=== PATIENT | male | born 2000 | race Caucasian/White ===

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

== ENCOUNTER 2021-01-08 17:45 | Inpatient (IN) ==
[2021-01-08 20:01] LABS: Basophils # (auto) 0.01 K/uL (0-0.2); Basophils % (auto) 0.1 %; Eosinophils # (auto) 0.14 K/uL (0-0.5); Eosinophils % (auto) 1.9 %; Hematocrit (blood only) 43.7 % (42-52); Hemoglobin 15.3 g/dL (14.0-18.0); Immature Granulocytes # (auto) 0.01 K/uL (0.00-0.02); Immature Granulocytes % (auto) 0.1 %; Lymphocytes # (auto) 2.91 K/uL (1.2-3.4); Lymphocytes % (auto) 38.7 %; Mean Corpuscular Hemoglobin 32.8 pg (25-34); Mean Corpuscular Volume 93.6 fL (80-100); Monocytes # (auto) 0.59 K/uL (0.11-0.59); Monocytes % (auto) 7.8 %; Neutrophils # (auto) 3.86 K/uL (1.4-6.5); Neutrophils % (auto) 51.4 %; Platelet Count 274 K/uL (130-400); RDW Coefficient of Variation 11.9 % (11.5-14.5); Red Blood Count 4.67 M/uL (4.7-6.1); White Blood Count 7.52 K/uL (4.8-10.8)
[2021-01-08 20:02] LABS: Appearance Urine Clear (Clear); Bilirubin Urine Negative (Negative); Blood Urine Negative (Negative); Color Urine Yellow; Glucose Urine UA Negative (Negative); Ketones Urine Negative (Negative); Leukocyte Esterase Urine Negative (Negative); Nitrite Urine Negative (Negative); Protein Urine Negative (Negative); Specific Gravity Urine 1.016 (1.000-1.030); Urobilinogen Urine Negative (Negative)
[2021-01-08 20:19] LABS: Albumin Level 4.9 gm/dl (3.4-5.0); BUN Creatinine Ratio 12.2 (10-20); Calcium 9.5 mg/dl (8.5-10.1); Creatinine Clr Calc Pharmacy 133.7 ml/min; Est GFR (African American) 141.1 ml/min; Est GFR (Non-African American) 121.7 ml/min; Potassium 4.2 mmol/L (3.5-5.1)
[2021-01-08 20:46] LABS: Albumin Globulin Ratio 1.3 (0.9-2); Bilirubin,Total 0.4 mg/dl (0.2-1); Globulin 3.7 gm/dl (2.5-4.0); Total Protein 8.6 gm/dl (6.4-8.2)
[2021-01-08] MEDS ORDERED: SODIUM CHLORIDE 0.9% 1000ML 1,000 ML IV ONE (20:59)
--- NOTE | 2021-01-08 21:27 | Emergency Department Note ---
Impression & Plan Rhabdomyolysis, Left arm pain ED Provider Note NAME: ARIS CHAN AGE: 20 SEX: M : 2000 ARRIVES VIA: Walk-In INFORMANT: [Patient] ED PROVIDER(S): [Master pAple MD] CHIEF COMPLAINT: Arm pain/swelling HISTORY OF PRESENT ILLNESS: The patient is a 20-year-old male who presents with 2 days of left arm pain and swelling, the pain is mild in severity. He went to the gym on Wednesday and since then, the arm has felt tight. He is concerned about rhabdomyolysis as he has had this twice in the last year. There is no dark urine. He has had no cough or congestion or shortness of breath. He has no chest pain. He did see a master control engineer about his rhabdomyolysis and nothing was found of concern. Patient states that at the gym on Wednesday, he did 15 minutes of rows and triceps, he did not overdo it. He is not taking any supplements. REVIEW OF SYSTEMS: See HPI for pertinent positives and negatives. A total of ten systems were rev iewed and were otherwise negative. PMHx/PSHx: See Below SOCIAL HISTORY: See Below. PHYSICAL EXAM: GENERAL: Patient is in no acute distress. HEENT: No acute trauma, normocephalic atraumatic, mucous membranes moist, no nasal congestion, no scleral icterus. NECK: No stridor, no adenopathy, no meningismus, trachea is midline. LUNGS: Clear to auscultation bilaterally, no wheeze, no rhonchi, breath sounds equal. HEART: Without murmurs gallops or rubs, regular rate and rhythm. ABDOMEN: Soft, nontender, bowel sounds positive, no hernias, no peritonitis. EXTREMITIES: No cyanosis, full range of motion of all the joints without pain or difficulty, no signs for acute trauma. There is some mild discomfort to palpate the left tricep but I do not see any raul edema. No evidence for left upper extremity neurovascular compromise. NEUROLOGIC: Oriented x 3, no acute motor or sensory deficits, no focal weakness. SKIN: No rash, no jaundice, no diaphoresis. DIFFERENTIAL DIAGNOSIS: Rhabdomyolysis, muscle tear, contusion, strain, renal failure, dehydration, hematoma, among others. EMERGENCY DEPARTMENT COURSE/PROCEDURES: MEDICAL DECISION MAKING: There is no leukocytosis or concerning anemia. There is a normal platelet count. No significant electrolyte abnormality or kidney failure. No concerning liver enzyme elevation. Total CK is quite high at over 11,000. Urinalysis did not show infection or hematuria. Covid testing returned negative. The patient was given IV saline, 1 L. The patient has rhabdomyolysis. He requires IV hydration, a hospital stay and some monitoring. He has had this issue before 2 other times and has been hospitalized both times. I did speak with the patient and case management. The on-call hospitalist was consulted. Past Med/Surg History Medical History Elevated LFTs Rhabdomyolysis Surgical History (Updated 07/20/20 @ 12:16 by Aris Friedman DO) Hx of biopsy muscle: Left Quadriceps Biopsy 07/19/20 Family History (Updated 07/20/20 @ 12:14 by Aris Friedman DO) Denies family history of Neuromuscular disease Social History Smoking Status: Never smoker Hx Alcohol Use: No Hx Substance Use: No Preferred Language: Welsh Communication Ability: Effective Cutter First Required: No Beliefs That Will Affect Care: None Current Living Situation: Other Current Living Situation Comment: Dorm Feels Safe at Home: Yes Assistive Devices: None Allergies Allergies Allergy/AdvReac Type Severity Reaction Status Date / Time cefdinir [From Omnicef] Allergy Unknown Unknown Verified 07/17/20 19:28 Home Meds Home Medications Medication Instructions Recorded Confirmed multivitamin 1 tab PO DAILY 01/29/20 07/17/20 Results & Data (ED) Vital Signs Vital Signs - 24 hr 01/08/21 18:10 01/08/21 20:48 01/08/21 21:02 Temperature 36.8 C Temperature Source Temporal Artery Scan Pulse Rate 66 73 51 L Pulse Rate from SpO2 Sensor 87 51 L Respiratory Rate 18 15 20 Respiratory Effort / Characteristics Non-Labored Respiratory Depth Normal Blood Pressure 123/74 137/55 L 116/68 Blood Pressure Mean 90 82 84 Pulse Oximetry 95 95 100 Oxygen Delivery Method Room Air Sepsis Recent Fever Within 48 Hours No Sepsis New/Unexplained Change in Mental Status No Sepsis Action Taken by Nursing No Action Required 01/08/21 21:30 01/08/21 22:00 01/08/21 22:30 Temperature Temperature Source Pulse Rate 50 L 58 L 57 L Pulse Rate from SpO2 Sensor 50 L 56 L 54 L Respiratory Rate 18 18 18 Respiratory Effort / Characteristics Respiratory Depth Blood Pressure 129/71 119/64 116/68 Blood Pressure Mean 90 82 84 Pulse Oximetry 100 100 99 Oxygen Delivery Method Sepsis Recent Fever Within 48 Hours Sepsis New/Unexplained Change in Mental Status Sepsis Action Taken by Nursing 01/08/21 23:02 01/08/21 23:10 Temperature Temperature Source Pulse Rate 53 L 53 L Pulse Rate from SpO2 Sensor 57 L 53 L Respiratory Rate 20 20 Respiratory Effort / Characteristics Respiratory Depth Blood Pressure Blood Pressure Mean Pulse Oximetry 98 100 Oxygen Delivery Method Sepsis Recent Fever Within 48 Hours Sepsis New/Unexplained Change in Mental Status Sepsis Action Taken by Retirement Medications Current Medication List: was personally reviewed by me Laboratory Data Attestation: I reviewed the patient's lab results. Result diagrams: 01/08/21 19:45 01/08/21 19:45 Lab Results 01/08/21 01/08/21 01/08/21 Range/Units 19:45 19:45 19:45 WBC 7.52 (4.8-10.8) K/uL RBC 4.67 L (4.7-6.1) M/uL Hgb 15.3 (14.0-18.0) g/dL Hct 43.7 (42-52) % MCV 93.6 (80-100) fL MCH 32.8 (25-34) pg MCHC 35.0 (32-36) g/dL RDW Std Deviation 40.0 (36.4-46.3) fL RDW Coeff of Sweta 11.9 (11.5-14.5) % Plt Count 274 (130-400) K/uL MPV 9.0 (7.4-10.4) fL Immature Gran % (Auto) 0.1 % Neut % (Auto) 51.4 % Lymph % (Auto) 38.7 % [place] % (Auto) 7.8 % Eos % (Auto) 1.9 % Baso % (Auto) 0.1 % Neut # (Auto) 3.86 (1.4-6.5) K/uL Lymph # (Auto) 2.91 (1.2-3.4) K/uL [place] # (Auto) 0.59 (0.11-0.59) K/uL Eos # (Auto) 0.14 (0-0.5) K/uL Baso # (Auto) 0.01 (0-0.2) K/uL Immature Gran # (Auto) 0.01 (0.00-0.02) K/uL Sodium 139 (136-145) mmol/L Potassium 4.2 (3.5-5.1) mmol/L Chloride 105 (98-107) mmol/L Carbon Dioxide 28 (21-32) mmol/L Anion Gap 6.0 (3-11) BUN 11 (7-18) mg/dl Creatinine 0.91 (0.6-1.4) mg/dl Est Cr Clr Drug Dosing 133.7 ml/min Est GFR ( Amer) 141.1 ml/min Est GFR (Non-Af Amer) 121.7 ml/min BUN/Creatinine Ratio 12.2 (10-20) Glucose 91 (70-99) mg/dl Calcium 9.5 (8.5-10.1) mg/dl Total Bilirubin 0.4 (0.2-1) mg/dl AST 100 H (15-37) U/L ALT 44 (12-78) U/L Alkaline Phosphatase 59 (45-117) U/L Total Creatine Kinase 64943 H (39-308) U/L Total Protein 8.6 H (6.4-8.2) gm/dl Albumin 4.9 (3.4-5.0) gm/dl Globulin 3.7 (2.5-4.0) gm/dl Albumin/Globulin Ratio 1.3 (0.9-2) Urine Color Yellow Urine Appearance Clear (Clear) Urine pH 6.0 (4.5-7.5) Ur Specific [place] 1.016 (1.000-1.030) Urine Protein Negative (Negative) Urine Glucose (UA) Negative (Negative) Urine Ketones Negative (Negative) Urine Blood Negative (Negative) Urine Nitrite Negative (Negative) Urine Bilirubin Negative (Negative) Urine Urobilinogen Negative (Negative) Ur Leukocyte Esterase Negative (Negative) COVID-19 Eval Order SARS-CoV-2 (PCR) (Negative) 01/08/21 01/08/21 Range/Units 21:35 21:35 WBC (4.8-10.8) K/uL RBC (4.7-6.1) M/uL Hgb (14.0-18.0) g/dL Hct (42-52) % MCV (80-100) fL MCH (25-34) pg MCHC (32-36) g/dL RDW Std Deviation (36.4-46.3) fL RDW Coeff of Sweta (11.5-14.5) % Plt Count (130-400) K/uL MPV (7.4-10.4) fL Immature Gran % (Auto) % Neut % (Auto) % Lymph % (Auto) % [place] % (Auto) % Eos % (Auto) % Baso % (Auto) % Neut # (Auto) (1.4-6.5) K/uL Lymph # (Auto) (1.2-3.4) K/uL [place] # (Auto) (0.11-0.59) K/uL Eos # (Auto) (0-0.5) K/uL Baso # (Auto) (0-0.2) K/uL Immature Gran # (Auto) (0.00-0.02) K/uL Sodium (136-145) mmol/L Potassium (3.5-5.1) mmol/L Chloride (98-107) mmol/L Carbon Dioxide (21-32) mmol/L Anion Gap (3-11) BUN (7-18) mg/dl Creatinine (0.6-1.4) mg/dl Est Cr Clr Drug Dosing ml/min Est GFR ( Amer) ml/min Est GFR (Non-Af Amer) ml/min BUN/Creatinine Ratio (10-20) Glucose (70-99) mg/dl Calcium (8.5-10.1) mg/dl Total Bilirubin (0.2-1) mg/dl AST (15-37) U/L ALT (12-78) U/L Alkaline Phosphatase (45-117) U/L Total Creatine Kinase (39-308) U/L Total Protein (6.4-8.2) gm/dl Albumin (3.4-5.0) gm/dl Globulin (2.5-4.0) gm/dl Albumin/Globulin Ratio (0.9-2) Urine Color Urine Appearance (Clear) Urine pH (4.5-7.5) Ur Specific [place] (1.000-1.030) Urine Protein (Negative) Urine Glucose (UA) (Negative) Urine Ketones (Negative) Urine Blood (Negative) Urine Nitrite (Negative) Urine Bilirubin (Negative) Urine Urobilinogen (Negative) Ur Leukocyte Esterase (Negative) COVID-19 Eval Order Covid19 at [facility] SARS-CoV-2 (PCR) NEGATIVE (Negative) Administered Medications Discontinued Medications Sodium Chloride (Nss 1000ml) 1,000 mls @ 999 mls/hr IV .Q1H1M ONE Stop: 01/08/21 21:59 Last Infusion: 01/08/21 22:01 Dose: 999 mls/hr Documented by: [id number] Admin: 01/08/21 21:00 Dose: 999 mls/hr Documented by: [id number] Sodium Chloride (Nss 1000ml) 1,000 mls @ 999 mls/hr IV .Q1H1M STA Stop: 01/08/21 22:48 Last Admin: 01/08/21 22:15 Dose: 999 mls/hr Documented by: [id number] Discharge Plan Visit Data Chief Complaint: Swelling/Edema to Extremity Stated Complaint: EDEMA, SORENESS, TIGHTNESS ED Provider: Master Apple Discharge Problem: Rhabdomyolysis, Left arm pain Patient Disposition: Admitted As Inpatient Condition: Good Discharge Instructions Interventions: ED Discharge Assessment Last Done: 01/08/21 23:14 Forms Stand Alone Forms: [employer] Prescriptions Prescriptions: No Action multivitamin Tablet 1 tab PO DAILY RF: 0 Referrals Referrals: [facility] [Primary Care Provider] -
[2021-01-08] MEDS ORDERED: SODIUM CHLORIDE 0.9% 1000ML 1,000 ML IV STA (21:48)
--- NOTE | 2021-01-08 22:20 | History & Physical Report ---
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 Continue at 200 ml/hr. - Trend CK, CBC, CMP - urine myoglobin pending Elevated LFTs - chronic, improving. Secondary to repeat rhabdo and hx alcohol use. - trend CMP FENGI: Regular diet; NS at 200 cc/hr DVT Ppx:ambulate in room Dispo: Med/surg Code status: Full code History of Present Illness Chief Complaint: Muscle pain Primary Care Provider: [facility] 20 yo M with hx multiple admissions for rhabdomyolysis in ER for stiff muscle pain 2 days after working out, found to have rhabdo. Patient denies using any work out supplements. He states he worked out on Wednesday for 15 minutes doing rowing and tricep curls, and then did half an hour of cardio on the treadmill and didn't push himself. he states he's been working out for 3 days a week, an hour at a time all summer and has handled it well. Drinks 6 12-16 oz water bottles per day. Drinks ~5 beers on the weekend spread over an extended period of time. Was able to see a 4 h youth development specialist after last admission in july, which revealed negative tests for genetic etiology for rhabdo. Review of muscle biopsy done here in july -- negative for glycogen storage/lysosomal storage diseases, myositis. he denies nay pain at this time, and says his arms mostly just feel tight. He does note that his range of motion has decreased at time of interview compared to when he got to the ER. Allergies Allergy/AdvReac Type Severity Reaction Status Date / Time cefdinir [From Omnicef] Allergy Unknown Unknown Verified 01/09/21 00:27 Home Medications Medication Instructions Recorded Confirmed Type multivitamin 1 tab PO DAILY 01/29/20 01/09/21 History guaifenesin 1,200 mg tablet, 1,200 mg PO DAILY PRN 01/09/21 01/09/21 History extended release 12 hr (Mucinex) Past Med/Surg History Medical History (Updated 01/09/21 @ 00:16 by Marly Cain RN) Elevated LFTs Rhabdomyolysis x3 Surgical History Hx of biopsy muscle: Left Quadriceps Biopsy 07/19/20 Family History (Updated 07/20/20 @ 12:14 by Alf Friedman DO) Denies family history of Neuromuscular disease Social History Smoking Status: Never smoker Second Hand Exposure: No; Do You Dip or Chew Tobacco: No; Tobacco Cessation Education Requested by Patient: No Hx Alcohol Use: Yes Alcohol type: beer, wine and hard liquor Hx Substance Use: Yes Last Used Substance Other:: MORE THAN TWO WEEKS AGO Substance Use Type Other:: OCCASIONAL Preferred Language: Yi Communication Ability: Effective Supervisor Graphite Required: No Beliefs That Will Affect Care: None Current Living Situation: Other Current Living Situation Comment: [facility] Other Information That Helps Us Care for You: No Feels Safe at Home: Yes Safety Concerns: Feels Safe At This Time Assistive Devices: None Review of Systems Constitutional: no fever, no chills, no sweats and no fatigue Eyes: no blind spots and no discharge Ear, Nose, Mouth, Throat: no hearing loss and no nasal congestion Respiratory: no cough and no dyspnea Cardiovascular: no chest pain, no dyspnea on exertion and no edema Gastrointestinal: no abdominal pain, no nausea, no vomiting, no constipation, no diarrhea/loose stools and no blood in stools Genitourinary: no dysuria or no decreased urination Musculoskeletal: + stiffness, + limited range of motion and + myalgia; no joint pain Neurologic: no tingling, no numbness and no headache(s) Endocrine: no fatigue Physical Exam Physical Exam: Constitutional: healthy appearing young male sitting comfortably in bed. Eyes: EOMI, pupils equal and reactive bilaterally, no scleral icterus Cardiac: RRR, no murmurs, gallops or rubs. Normal S1, S2 Pulm: CTA BL, no wheezes, rhonchi, crackles or rubs, moving air well throughout both lungs Abd: soft, nontender, nondistended, normal bowel sounds, no rebound or guarding Extremities: 2+ peripheral pulses, no edema Neuro: no focal deficits, moving all 4 limbs, A&Ox3 MSK: no TTP of muscle groups, extension of arms limited to ~170 degrees, flexion limited -- previously was able to grasp his shoulder with full hand, now difficult to touch finger tips to shoulder Results & Data Results & [facility] ([facility] Vital Signs (Past 12 Hours) Vital Signs Temp Pulse Resp BP Pulse Ox 01/08/21 18:10 36.8 C 66 18 123/74 95 Laboratory Results Laboratory Results WBC 7.52 K/uL (4.8-10.8) 01/08/21 19:45 RBC 4.67 M/uL (4.7-6.1) L 01/08/21 19:45 Hgb 15.3 g/dL (14.0-18.0) 01/08/21 19:45 Hct 43.7 % (42-52) 01/08/21 19:45 MCV 93.6 fL (80-100) 01/08/21 19:45 MCH 32.8 pg (25-34) 01/08/21 19:45 MCHC 35.0 g/dL (32-36) 01/08/21 19:45 RDW Std Deviation 40.0 fL (36.4-46.3) 01/08/21 19:45 RDW Coeff of Sweta 11.9 % (11.5-14.5) 01/08/21 19:45 Plt Count 274 K/uL (130-400) 01/08/21 19:45 MPV 9.0 fL (7.4-10.4) 01/08/21 19:45 Immature Gran % (Auto) 0.1 % 01/08/21 19:45 Neut % (Auto) 51.4 % 01/08/21 19:45 Lymph % (Auto) 38.7 % 01/08/21 19:45 Harding % (Auto) 7.8 % 01/08/21 19:45 Eos % (Auto) 1.9 % 01/08/21 19:45 Baso % (Auto) 0.1 % 01/08/21 19:45 Neut # (Auto) 3.86 K/uL (1.4-6.5) 01/08/21 19:45 Lymph # (Auto) 2.91 K/uL (1.2-3.4) 01/08/21 19:45 Harding # (Auto) 0.59 K/uL (0.11-0.59) 01/08/21 19:45 Eos # (Auto) 0.14 K/uL (0-0.5) 01/08/21 19:45 Baso # (Auto) 0.01 K/uL (0-0.2) 01/08/21 19:45 Immature Gran # (Auto) 0.01 K/uL (0.00-0.02) 01/08/21 19:45 Sodium 139 mmol/L (136-145) 01/08/21 19:45 Potassium 4.2 mmol/L (3.5-5.1) 01/08/21 19:45 Chloride 105 mmol/L (98-107) 01/08/21 19:45 Carbon Dioxide 28 mmol/L (21-32) 01/08/21 19:45 Anion Gap 6.0 (3-11) 01/08/21 19:45 BUN 11 mg/dl (7-18) 01/08/21 19:45 Creatinine 0.91 mg/dl (0.6-1.4) 01/08/21 19:45 Est Cr Clr Drug Dosing 133.7 ml/min 01/08/21 19:45 Est GFR ( Amer) 141.1 ml/min 01/08/21 19:45 Est GFR (Non-Af Amer) 121.7 ml/min 01/08/21 19:45 BUN/Creatinine Ratio 12.2 (10-20) 01/08/21 19:45 Glucose 91 mg/dl (70-99) 01/08/21 19:45 Calcium 9.5 mg/dl (8.5-10.1) 01/08/21 19:45 Total Bilirubin 0.4 mg/dl (0.2-1) 01/08/21 19:45 AST 100 U/L (15-37) H 01/08/21 19:45 ALT 44 U/L (12-78) 01/08/21 19:45 Alkaline Phosphatase 59 U/L (45-117) 01/08/21 19:45 Total Creatine Kinase 46519 U/L (39-308) H 01/08/21 19:45 Total Protein 8.6 gm/dl (6.4-8.2) H 01/08/21 19:45 Albumin 4.9 gm/dl (3.4-5.0) 01/08/21 19:45 Globulin 3.7 gm/dl (2.5-4.0) 01/08/21 19:45 Albumin/Globulin Ratio 1.3 (0.9-2) 01/08/21 19:45 Urine Color Yellow 01/08/21 19:45 Urine Appearance Clear (Clear) 01/08/21 19:45 Urine pH 6.0 (4.5-7.5) 01/08/21 19:45 Ur Specific [place] 1.016 (1.000-1.030) 01/08/21 19:45 Urine Protein Negative (Negative) 01/08/21 19:45 Urine Glucose (UA) Negative (Negative) 01/08/21 19:45 Urine Ketones Negative (Negative) 01/08/21 19:45 Urine Blood Negative (Negative) 01/08/21 19:45 Urine Nitrite Negative (Negative) 01/08/21 19:45 Urine Bilirubin Negative (Negative) 01/08/21 19:45 Urine Urobilinogen Negative (Negative) 01/08/21 19:45 Ur Leukocyte Esterase Negative (Negative) 01/08/21 19:45 COVID-19 Eval Order Covid19 at [facility] 01/08/21 21:35 SARS-CoV-2 (PCR) NEGATIVE (Negative) 01/08/21 21:35 Medications Administered Sodium Chloride (Nss 1000ml) 1,000 mls @ 200 mls/hr IV .Q5H KINZA Stop: 02/08/21 00:29 Last Admin: 01/09/21 00:36 Dose: 200 mls/hr Documented by: [id number] Discontinued Medications Sodium Chloride (Nss 1000ml) 1,000 mls @ 999 mls/hr IV .Q1H1M ONE Stop: 01/08/21 21:59 Last Infusion: 01/08/21 22:01 Dose: 999 mls/hr Documented by: [id number] Admin: 01/08/21 21:00 Dose: 999 mls/hr Documented by: [id number] Sodium Chloride (Nss 1000ml) 1,000 mls @ 999 mls/hr IV .Q1H1M STA Stop: 01/08/21 22:48 Last Infusion: 01/09/21 00:36 Dose: 0 mls/hr Documented by: [id number] Admin: 01/08/21 22:15 Dose: 999 mls/hr Documented by: [id number] Supervising Physician Co-Signing Physician Notes Patient seen and examined, chart reviewed, case discussed with Dr. Montoya and I agree with her assessment and plan as documented above. In brief, patient is a healthy 20-year-old male presenting with rhabdomyolysisrecurrent episode. Patient has had a muscle biopsy in the past which was unremarkable he has also seen a 4 h youth development specialist in [facility] with negative work-up as well. Patient does not use any [id number] supplements. States he stays well- hydrated and does not over imbibe alcohol, consumes no drugs. Presents with pain and tightness of left upper extremity after working out Wednesday states that he has decreased mobility specifically in his left upper extremity due to muscle tightness. Denies darkened urine. Elevated CK to 11,024 Exam largely unremarkable. He is nontoxic in appearance, resting comfortably Mild tension in left forearm and left upper extremity, muscle compartments are soft, sensation/pulses intact Remainder of exam unremarkable Labs reviewed Assessment/plan 20-year-old male presenting with recurrent rhabdomyolysis following workout. This is his third such episode in the last 1.5 years. He has seen a 4 h youth development specialist and has had a muscle biopsy as well which were both unrevealing. Interestingly, rhabdo only seems to occur when he is here in [facility] rather than home in [place] Aggressive IV fluid hydration with closely monitoring urine output and electrolytes Repeat CK in a.m. Check urine myoglobin Remainder of plan as above Resident Activity Tracking Resident Involvement: Resident Care Provided Care Provided: Adult Hospital Medicine (1) Rhabdomyolysis Rhabdomyolysis type: non-traumatic Qualified Code(s): M62.82 - Rhabdomyolysis
[2021-01-09] MEDS ORDERED: SODIUM CHLORIDE 0.9% 1000ML 1,000 ML IV ONE (00:08)
[2021-01-09] MEDS ORDERED: ONDANSETRON INJ 2 MG/ML 2 ML VIAL IV PRN (00:14)
[2021-01-09] MEDS ORDERED: ACETAMINOPHEN 325 MG TAB PO PRN (00:14)
[2021-01-09] MEDS: SODIUM CHLORIDE 0.9% 1000ML 1,000 ML IV SCH ×2 (00:36→05:29)
--- NOTE | 2021-01-09 04:45 | Billing Data ---
Date of Service January 08, 2021 Coding Level of Care Code 86365 Initial Inpt Care Lvl 2
[2021-01-09 06:36] LABS: Hematocrit (blood only) 37.7 % (42-52); Hemoglobin 12.7 g/dL (14.0-18.0); Mean Corpuscular Hemoglobin 31.6 pg (25-34); Mean Corpuscular Hgb Conc 33.7 g/dL (32-36); Mean Corpuscular Volume 93.8 fL (80-100); Mean Platelet Volume 9.2 fL (7.4-10.4); Platelet Count 219 K/uL (130-400); RDW Coefficient of Variation 11.9 % (11.5-14.5); RDW Standard Deviation 40.5 fL (36.4-46.3); Red Blood Count 4.02 M/uL (4.7-6.1); White Blood Count 5.41 K/uL (4.8-10.8)
[2021-01-09 07:24] LABS: Albumin Level 3.2 gm/dl (3.4-5.0); Calcium 8.1 mg/dl (8.5-10.1); Creatinine Clr Calc Pharmacy 153.5 ml/min; Est GFR (African American) 149.3 ml/min; Est GFR (Non-African American) 128.8 ml/min; Potassium 3.9 mmol/L (3.5-5.1)
[2021-01-09 07:48] LABS: Albumin Globulin Ratio 1.2 (0.9-2); Bilirubin,Total 0.3 mg/dl (0.2-1); Globulin 2.7 gm/dl (2.5-4.0); Total Protein 5.9 gm/dl (6.4-8.2)
--- NOTE | 2021-01-09 08:16 | Hospitalist Progress Note ---
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 Continue at 200 ml/hr but changed to LR CK improving, AST improving - urine myoglobin pending Elevated LFTs - chronic, improving. Secondary to repeat rhabdo and hx alcohol use. - trend CMP FENGI: Regular diet; NS at 200 cc/hr DVT Ppx:ambulate in room Dispo: Med/surg Code status: Full code Admission and Anticipated Discharge Date Admission Date: January 08, 2021 Results & Data Results & Data ([facility]) Vital Signs (Past 12 Hours) Vital Signs Temp Pulse Pulse Resp BP BP Pulse Ox 01/09/21 07:46 36.4 C L 48 L 16 122/66 99 01/09/21 00:18 37 C 69 20 120/73 100 01/08/21 23:10 53 L 20 100 01/08/21 23:02 53 L 20 98 01/08/21 22:30 57 L 18 116/68 99 01/08/21 22:00 58 L 18 119/64 100 01/08/21 21:30 50 L 18 129/71 100 01/08/21 21:02 51 L 20 116/68 100 01/08/21 20:48 73 15 137/55 L 95 PG Care Time/CCT Total # of Minutes Spent Total Time Spent with Patient: Total time spent is greater than 50% in coordination of care (as documented) at patient's floor/unit and/or counseling patient: Coding Diagnoses Rhabdomyolysis M62.82 Rhabdomyolysis type: non-traumatic (1) Rhabdomyolysis Rhabdomyolysis type: non-traumatic Qualified Code(s): M62.82 - Rhabdomyolysis
[2021-01-09] MEDS: LACTATED RINGER'S 1,000 ML IV SCH ×2 (08:27→13:27)
--- NOTE | 2021-01-09 16:57 | Discharge Summary ---
Date of Service January 09, 2021 Admission HPI Per Admitting Provider 20 yo M with hx multiple admissions for rhabdomyolysis in ER for stiff muscle pain 2 days after working out, found to have rhabdo. Patient denies using any work out supplements. He states he worked out on Wednesday for 15 minutes doing rowing and tricep curls, and then did half an hour of cardio on the treadmill and didn't push himself. he states he's been working out for 3 days a week, an hour at a time all summer and has handled it well. Drinks 6 12-16 oz water bottles per day. Drinks ~5 beers on the weekend spread over an extended period of time. Was able to see a glass mechanic after last admission in july, which revealed negative tests for genetic etiology for rhabdo. Review of muscle biopsy done here in july -- negative for glycogen storage/lysosomal storage diseases, myositis. he denies nay pain at this time, and says his arms mostly just feel tight. He does note that his range of motion has decreased at time of interview compared to when he got to the ER. Principal Diagnosis Rhabdomyolysis due to excessive working out Discharge Exam The patient appeared well Vital signs as documented. Neurologic exam is alert and oriented, no focal loss of strength Skin is without bruises or rashes Psychologically is without concerns for anxiety or depression. 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 - urine myoglobin pending Elevated LFTs - chronic, improving. Secondary to repeat rhabdo and hx alcohol use. Patient was given marr warning about exerting himself self and hydrating himself over the next few days. The fact that he said significant testing including muscle biopsy and genetic testing leads us to be likely overuse. Although the patient minimizes his working out I believe he should avoid doing anabolic type of exercises. I requested nothing but light cardio over the next week he is going to have an outpatient appoint with [facility] and will was given slips for lab work for renal function and CK prior to his visit Total Time Total Time Spent Total Time Spent (In Minutes): It required greater than 30 minutes to prepare this patient for discharge Discharge Plan Discharge Items Patient Disposition: Home - Self-Care Reason For Visit: RHABDO Discharge Diagnosis: rhabdomyolysis Condition on Discharge: Good Activity: Per Instructions section Activity Comment: no anabolic exercise until next week Non-emergency contact: Primary Care Provider Call non-emergency contact if: you have any medication questions and you have a fever Follow-up/Referrals: [facility] [Primary Care Provider] - 01/14/21 10:40 am (APPT WITH DR YESICA ZAVALA) Diet: Regular Ambulatory Orders: Basic Metabolic Panel (Routine) Timeframe: 1 Week Location: Determined by Patient Ordered By: Dangelo Henriquez Creatine Kinase (Routine) Timeframe: 1 Week Location: Determined by Patient Ordered By: Dangelo Henriquez Addtl Attending Provider Instructions: good hydration no strenuous activity follow up with [facility] have your blood checked a day prior to your appointment Pending Studies at Discharge: No Stand-Alone Forms: [facility], Smoking Cessation Medications and DC Order Prescriptions: Continued multivitamin Tablet 1 tab PO DAILY RF: 0 Mucinex 1,200 mg Tablet Extended Release 12hr 1,200 mg PO DAILY PRN (Reason: Congestion) RF: 0 Discharge Orders: Discharge Order (Routine); Ordered 01/09/21 Ordered By: Dangelo Henriquez Admission Data Admit Date/Time: 01/08/21 22:49 Attending Provider: Dangelo Henriquez Admit Provider: Ally Montoya Primary Care Provider: [facility] Other Providers: Isabelle Azar Other Interventions: Discharge Summary Assessment (RN) Last Done: 01/09/21 14:49 Coding Level of Care Code D/C DAY MANAGEMENT >30 MINS Diagnoses Rhabdomyolysis M62.82 Rhabdomyolysis type: non-traumatic
== END 2021-01-09 15:54 | disposition home or self-care (01) | DRG 558 ==
LOC: ED 17:45 → 3E 21:45 → SUATTDRO 21:45 → 3E 23:14